=== PATIENT | female | born 1930 | race Caucasian/White ===

== ENCOUNTER 2017-02-10 18:09 | Inpatient (IN) ==
[2017-02-10 19:16] LABS: Basophils # 0.1 K/mcL (0.0-0.2); Basophils % 1.3 %; Eosinophils # 0.2 K/mcL (0.0-0.6); Eosinophils % 2.5 %; Hematocrit 39.5 % (35.3-44.9); Immature Granulocytes % 0.1 % (0-4); Lymphocytes # 2.7 K/mcL (0.6-4.6); Lymphocytes % 35.5 %; Mean Corpuscular HGB Conc 32.9 g/dL (31.6-35.5); Mean Corpuscular Hemoglobin 30.6 pg (28.0-33.3); Mean Corpuscular Volume 92.9 fL (83.0-100.0); Mean Platelet Volume 10.8 fL (9.4-12.4); Monocytes # 0.6 K/mcL (0.0-1.3); Monocytes % 8.4 %; Neutrophils # 3.9 K/mcL (1.6-8.9); Platelet Count 254 K/mcL (140-400); Red Blood Count 4.25 M/mcL (3.82-4.97); Segmented Neutrophils % 52.2 %
--- NOTE | 2017-02-10 19:24 | Emergency Department Note ---
Disposition Clinical Impression: Atrial fibrillation with RVR, Supratherapeutic INR Disposition: Admitted As Inpatient Condition: Fair Referrals: Renee Watkins MD [Primary Care Provider] - Forms: ED Satisfaction Letter Time of Disposition: 20:41 Recheck wound or abnormal lab - General Chief Complaint: ED Recheck/Abnormal Lab/Rx Stated Complaint: High INR Time Seen by Provider: 02/10/17 18:26 Source: patient, family Limitations: no limitations Nursing Notes Reviewed: Yes Vital Signs Reviewed: Yes - History of Present Illness HPI Narrative: Patient is an 87-year-old female who presents to [facility] ED with a chief complaint of elevated INR, atrial fibrillation. Patient was seen by her primary care physician earlier today who was concerned for this. Patient denies any nausea, vomiting, fever or chills. No chest pain or difficulty breathing. States she just does not get more tired than usual at home. This does not seem to bother her too much except for that she needs to rest more often than usual. No signs of bleeding. Denies any black or tarry stools. No lightheadedness or dizziness. Pt Subjective Complaint: abnormal lab(s) Symptoms Since Prior Visit: no new symptoms Context: called for abnormal lab result Associated symptoms: none - Related Data Home Medications Medication Instructions Recorded Confirmed Carvedilol 3.125 mg PO BID 02/10/17 02/10/17 Cefdinir [Omnicef] 300 mg PO BID 02/10/17 02/10/17 Dofetilide [Tikosyn] 0.25 mg PO BID 02/10/17 02/10/17 EPINEPHrine [Epipen] 0.3 mg IM ONCE PRN 02/10/17 02/10/17 Lisinopril [Zestril] 7.5 mg PO DAILY 02/10/17 02/10/17 Lutein/Zeaxanthin [Ocuvite Lutein 1 each PO DAILY 02/10/17 02/10/17 25-5 mg Softgel] Multivitamin [Multi-Day Vitamins] 1 each PO DAILY 02/10/17 02/10/17 Warfarin Sodium [Coumadin] 6 mg PO SUTUTH 02/10/17 02/10/17 Warfarin [Coumadin] 5 mg PO MOWEFRSA 02/10/17 02/10/17 Allergies Allergy/AdvReac Type Severity Reaction Status Date / Time No Known Allergies Allergy Verified 02/10/17 18:13 All systems ED: reviewed and negative except as stated. Past Medical History - Past Medical History Attestation: Yes The following information was validated with the patient. Source: patient Medical history: Reports: atrial fibrillation Psychiatric history: Reports: no psych history - Social History Smoking Status: Never smoker Smokeless Tobacco Status: No Alcohol use: Reports: none Drug use: Reports: none Physical Exam - General Limitations: no limitations General appearance: alert, in no apparent distress - Head Head exam: atraumatic, normocephalic, normal inspection - Eye Eye exam: Present: normal appearance, PERRL, EOMI - ENT ENT exam: normal exam, normal oropharynx, mucous membranes moist - Neck Neck exam: Present: normal inspection, full ROM, trachea midline - Chest Chest inspection: Present: normal inspection, symmetric chest wall rise - Respiratory Respiratory exam: Present: normal lung sounds bilaterally - Cardiovascular Cardiovascular exam: Present: tachycardia, irregular rhythm - Abdominal Exam Abdominal exam: Present: soft, Non-Tender. Absent: tenderness, distention, guarding, rebound, rigidity - Extremities Exam Extremities exam: Present: normal inspection, full ROM. Absent: tenderness, pedal edema - Back Exam Back exam: Present: normal inspection, full ROM. Absent: tenderness - Neurological Exam Neurological exam: Present: alert, oriented X3 - Psychiatric Psychiatric exam: Present: normal affect, normal mood - Skin Skin exam: Present: warm, dry, intact, normal color Course Course Narrative: Patient seen and examined. Atrial fibrillation with RVR. Chest x-ray and cardiopulmonary workup started. Patient's INR is high but patient does not have any obvious signs of bleeding. Her Coumadin will need to be held and her INR levels rechecked. - Reevaluation(s) Reevaluation #1: EKG does show A. fib with RVR. We will start patient on a Cardizem drip. We will admit to hospital. I spoke with hospitalist Dr. Palomares who has accepted patient for admission. Time: 20:32 Vital Signs Temperature 98.1 F 02/10/17 18:10 Pulse Rate 101 02/10/17 18:10 Respiratory Rate 18 02/10/17 18:10 Blood Pressure 150/118 02/10/17 18:10 O2 Sat by Pulse Oximetry 99 02/10/17 18:10 Temperature 98.1 F 02/10/17 18:10 Pulse Rate 101 02/10/17 18:10 Respiratory Rate 18 02/10/17 18:10 Blood Pressure 150/118 02/10/17 18:10 O2 Sat by Pulse Oximetry 99 02/10/17 18:10 Oxygen Delivery Oxygen Delivery Room Air Recheck wound or abnormal lab - MDM Narrative Medical decision making narrative: I examined this patient and my medical decision-making was reviewed with the CELL OPERATOR/PA/Advanced Practice Nurse/Resident Physician. I agree with the documented findings, disposition and treatment plan as described except to the extent set forth below. Evaluated this patient with Dr. Hurst and I agree with her evaluation and management plan, I supervised the care of the patient notes today. Patient comes in today with an elevated INR of 7.5 but no bleeding. She has a history of A. fib with RVR and she has felt a little bit weak denies any chest pain. Here her heart rate greater than 110. Check an EKG and she has A. fib with RVR here. So we will do further assessment and she may need admission. Laboratory work chest x-ray ordered an EKG. 1930 hrs.: Patient had an EKG performed shows a atrial fibrillation, ventricular rate is 1:15, QRS is 146, QTC is 434, left axis deviation with left bundle-branch block, compared this EKG she had in 2013 and showed the same except for change and rate no signs of acute ischemia. 2000 hrs.: Started on Cardizem for her rapid ventricular response. We will admit her. Critical care time exclusive A separately billable procedures 35 minutes. Chest X-Ray 02/10/17 19:36 IMPRESSION: 1. Small bilateral pleural effusions and chronic bilateral interstitial opacities. 2. Cardiomegaly. D/ / Nathan Quiñones MD / Nathan Quiñones MD Interpreting Provider: Nathan Quiñones MD - Medical Records Medical records reviewed: Yes I reviewed the patient's medical records. - Lab Data Lab results reviewed: Yes I reviewed the patient's lab results. Result diagrams: 02/10/17 18:35 02/10/17 18:35 Lab Results 02/10/17 02/10/17 02/10/17 Range/Units 18:35 18:35 18:35 WBC 7.5 (4.3-11.1) K/mcL RBC 4.25 (3.82-4.97) M/mcL Hgb 13.0 (11.5-15.4) g/dL Hct 39.5 (35.3-44.9) % MCV 92.9 (83.0-100.0) fL MCH 30.6 (28.0-33.3) pg MCHC 32.9 (31.6-35.5) g/dL RDW 14.0 (11.5-14.5) % Plt Count 254 (140-400) K/mcL MPV 10.8 (9.4-12.4) fL Immature Gran % 0.1 (0-4) % Seg Neutrophils % 52.2 % Lymphocytes % 35.5 % Monocytes % 8.4 % Eosinophils % 2.5 % Basophils % 1.3 % Neutrophils # 3.9 (1.6-8.9) K/mcL Lymphocytes # 2.7 (0.6-4.6) K/mcL Monocytes # 0.6 (0.0-1.3) K/mcL Eosinophils # 0.2 (0.0-0.6) K/mcL Basophils # 0.1 (0.0-0.2) K/mcL Sodium 138 (136-145) mEq/L Potassium 4.3 (3.5-4.5) mEq/L Chloride 105 (98-109) mEq/L Carbon Dioxide 21 (19-29) mEq/L BUN 23 H (7-20) mg/dL Creatinine 1.61 H (0.57-1.11) mg/dL Est GFR ( Amer) 37 L (> 60) Est GFR (Non-Af Amer) 30 L (> 60) BUN/Creatinine Ratio 14 (6-26) Glucose 97 (70-99) mg/dL Calculated Osmolality 290 (280-300) Calcium 10.4 (8.6-10.8) mg/dL Troponin I 0.02 (0-0.03) ng/mL B-Natriuretic Peptide (0-100) pg/mL 02/10/17 Range/Units 18:35 WBC (4.3-11.1) K/mcL RBC (3.82-4.97) M/mcL Hgb (11.5-15.4) g/dL Hct (35.3-44.9) % MCV (83.0-100.0) fL MCH (28.0-33.3) pg MCHC (31.6-35.5) g/dL RDW (11.5-14.5) % Plt Count (140-400) K/mcL MPV (9.4-12.4) fL Immature Gran % (0-4) % Seg Neutrophils % % Lymphocytes % % Monocytes % % Eosinophils % % Basophils % % Neutrophils # (1.6-8.9) K/mcL Lymphocytes # (0.6-4.6) K/mcL Monocytes # (0.0-1.3) K/mcL Eosinophils # (0.0-0.6) K/mcL Basophils # (0.0-0.2) K/mcL Sodium (136-145) mEq/L Potassium (3.5-4.5) mEq/L Chloride (98-109) mEq/L Carbon Dioxide (19-29) mEq/L BUN (7-20) mg/dL Creatinine (0.57-1.11) mg/dL Est GFR ( Amer) (> 60) Est GFR (Non-Af Amer) (> 60) BUN/Creatinine Ratio (6-26) Glucose (70-99) mg/dL Calculated Osmolality (280-300) Calcium (8.6-10.8) mg/dL Troponin I (0-0.03) ng/mL B-Natriuretic Peptide 477 H (0-100) pg/mL - Radiology Data Radiology results reviewed: Yes I reviewed the patient's radiology results. Chest X-Ray 02/10/17 19:36
[2017-02-10 19:33] LABS: Calcium 10.4 mg/dL (8.6-10.8); Potassium 4.3 mEq/L (3.5-4.5)
--- NOTE | 2017-02-10 21:23 | Internal Med History&Physical ---
Date of Encounter: 02/10/17 Time of Encounter: 21:18 Assessment and Plan (1) UTI (urinary tract infection) Current visit: Yes Status: Acute per history will check ua and cultures and resume her OP omnicef Qualifiers: Urinary tract infection type: acute cystitis Hematuria presence: without hematuria Qualified Code(s): N30.00 - Acute cystitis without hematuria (2) CHF (congestive heart failure) Current visit: Yes Status: Acute congestive heart failure likely due to atrial fib with RVR will check echo in am and gentle diuresis Qualifiers: Congestive heart failure type: unspecified congestive heart failure type Congestive heart failure chronicity: unspecified congestive heart failure chronicity Qualified Code(s): I50.9 - Heart failure, unspecified (3) Atrial fibrillation with RVR Current visit: Yes Status: Acute started on cardizem drip rate now in 80s will continue cardzem drip add lopressor and cardiology consult in am (4) Supratherapeutic INR Current visit: Yes Status: Acute hold coumadin for now (5) Renal failure Current visit: Yes Status: Acute dont have baseline will recheck ain am Internal Medicine - H&P: HPI Chief complaint: atrial fib Admitted From: Emergency Dept Plans for Post Hospital Care: Home History of present illness: Ms. Delgadillo is a 87 year old female Patient with history of atrial fibrillation , recurrent uti cultures grows E coli, in past , htn patient was seen by primary physician today and noted in RVR atrial fib and also inr was 7.5 patient was then sent to ER for further evaluation Has symptoms of sob with exertion and generalized fatique had prior cardioversion for atrial fib twice in past. sees [facility] also concern about symptoms of uti . had OP prescription not filled yet bnp was 477 on exam has bilat rales and grade 2/6 systolic murmur Past Med Surg Social Fam HX - Past Medical History Medical history: atrial fibrillation, hypertension Psychiatric history: no psych history - Social History Smoking Status: Never smoker Smokeless Tobacco Status: No Alcohol use: none Drug use: none Internal Medicine - H&P: Meds Carvedilol 3.125 mg PO BID 02/10/17 [History] Cefdinir [Omnicef] 300 mg PO BID 02/10/17 [History] Dofetilide [Tikosyn] 0.25 mg PO BID 02/10/17 [History] EPINEPHrine [Epipen] 0.3 mg IM ONCE PRN 02/10/17 [History] Lisinopril [Zestril] 7.5 mg PO DAILY 02/10/17 [History] Lutein/Zeaxanthin [Ocuvite Lutein 25-5 mg Softgel] 1 each PO DAILY 02/10/17 [ History] Multivitamin [Multi-Day Vitamins] 1 each PO DAILY 02/10/17 [History] Warfarin Sodium [Coumadin] 6 mg PO SUTUTH 02/10/17 [History] Warfarin [Coumadin] 5 mg PO MOWEFRSA 02/10/17 [History] Allergies No Known Allergies Allergy (Verified 02/10/17 18:13) All Systems PM: A 10-system review of systems was performed and is negative for pertinent findings except as documented above in the HPI. - Constitutional Constitutional: fatigue, lethargy - EENT Eyes: no change in vision, no discharge, no pain, no photophobia Ears: no ear discharge, no ear pain, no tinnitus Nose, mouth and throat: no dysphagia, no nasal discharge, no neck pain, no sore throat - Cardiovascular Cardiovascular ROS IM: diaphoresis, dyspnea, dyspnea on exertion, irregular heart rhythm, lightheadedness, palpitations - Respiratory Respiratory: dyspnea, dyspnea on exertion - Gastrointestinal Gastrointestinal: no abdominal pain, no diarrhea, no hematemesis, no hematochezia, no melena, no nausea, no vomiting - Genitourinary Genitourinary: no change in urinary stream, no dysuria, no flank pain, no hematuria - Musculoskeletal Musculoskeletal ROS IM: no numbness, no tingling - Constitutional Vitals: Temp Pulse Resp BP Pulse Ox 98.1 F 122 14 120/101 95 02/10/17 18:10 02/10/17 20:31 02/10/17 21:11 02/10/17 21:11 02/10/17 20:31 General appearance: Present: A&O X 3 - Head Head exam: Present: atraumatic, normocephalic - Eye Eye exam: Present: PERRL, conjuntiva pink, sclera anicteric Pupils: Present: PERRL - Neck Neck exam general surgery: Present: supple, trachea midline. Absent: lymphadenopathy - Respiratory Respiratory exam: Present: rales - Cardiovascular Cardiovascular exam: Present: irregular rhythm, systolic murmur - GI/Abdominal GI/Abdominal exam: Present: normal bowel sounds, soft, no peritoneal signs. Absent: distended, tenderness - Extremities Exam Extremities exam: Present: warm, radial pulses palpable and symetrical. Absent : calf tenderness, cyanotic, pedal edema - Neurological Exam Neurological exam: Present: CN II-XII intact, oriented X3, no focal deficits. Absent: pronater drift, facial droop, speech deficit Internal Med - H&P Results - Labs CBC & Chem 7: 02/10/17 18:35 02/10/17 18:35
[2017-02-10] MEDS ORDERED: Naloxone 0.4 MG/ML INJ IVP PRN (21:30)
[2017-02-10] MEDS ORDERED: *HR* Morphine 2 MG/ML SYRINGE IVP PRN (21:30)
[2017-02-10] MEDS ORDERED: 0.9 % Sodium Chloride 1,000 ML ONE (22:16)
[2017-02-10 23:05] LABS: Bilirubin,Urine Negative (Negative); Blood,Urine Moderate (Negative); Clarity,Urine Turbid (Clear); Color,Urine Yellow (Yellow); Glucose,Urine (UA) Normal (Normal); Ketones,Urine Negative (Negative); Leukocyte Esterase,Urine Large (Negative); Nitrite,Urine Positive (Negative); PH,Urine 6.5 pH Units (5.0-8.0); Protein,Urine Trace mg/dL (Neg-Trace); Urobilinogen,Urine Normal (Normal)
[2017-02-10 23:13] LABS: Bacteria,Urine Many per hpf (None-Few); Hyaline Casts,Urine None Seen per lpf (None-Few); Squamous Epithelial Cell,Urine Many per lpf (None-Few); WBC,Urine TNTC per hpf (0-3)
[2017-02-11 00:34] LABS: Basophils # 0.1 K/mcL (0.0-0.2); Basophils % 0.7 %; Eosinophils # 0.1 K/mcL (0.0-0.6); Eosinophils % 1.3 %; Hemoglobin 11.7 g/dL (11.5-15.4); Immature Granulocytes % 0.3 % (0-4); Lymphocytes # 2.7 K/mcL (0.6-4.6); Lymphocytes % 25.8 %; Mean Corpuscular HGB Conc 32.5 g/dL (31.6-35.5); Mean Corpuscular Hemoglobin 29.7 pg (28.0-33.3); Mean Corpuscular Volume 91.4 fL (83.0-100.0); Mean Platelet Volume 10.1 fL (9.4-12.4); Monocytes # 0.7 K/mcL (0.0-1.3); Monocytes % 6.3 %; Neutrophils # 6.9 K/mcL (1.6-8.9); Platelet Count 215 K/mcL (140-400); Red Blood Count 3.94 M/mcL (3.82-4.97); Red Cell Distribution Width 13.7 % (11.5-14.5); Segmented Neutrophils % 65.6 %
[2017-02-11 00:49] LABS: Albumin 3.2 g/dL (3.5-5.0); Albumin/Globulin Ratio 0.9 (1.1-2.2); Bilirubin,Total 0.6 mg/dL (0.2-1.2); Calcium 9.9 mg/dL (8.6-10.8); Chol/HDL Ratio 5.4 (0-4.9); Globulin 3.7 g/dL (2.4-3.5); Magnesium 1.9 mg/dL (1.6-2.6); Potassium 4.1 mEq/L (3.5-4.5); Total Protein 6.9 g/dL (6.0-8.3)
[2017-02-11 06:36] LABS: INR 7.3; Prothrombin Time 83.4 Seconds (9.4-12.1)
[2017-02-11] MEDS ORDERED: Furosemide 20 MG/2 ML VIAL IVP SCH (08:00)
[2017-02-11] MEDS ORDERED: OCUVITE LUTEIN PO SCH (09:00)
[2017-02-11] MEDS ORDERED: Cefdinir 300 MG CAPSULE PO SCH (09:00)
[2017-02-11] MEDS ORDERED: Multivit/Ca/Min/Fe/FA 1 TAB TABLET PO SCH (09:00)
--- NOTE | 2017-02-11 09:58 | Cardiology Consult Note ---
Date of Encounter: 02/11/17 Time of Encounter: 08:00 Assessment and Plan (1) Atrial fibrillation with RVR Current Visit: Yes Status: Acute Known chronic afib. Previously rate controlled on carvedilol. Now rate controlled with HR in the 80's. Started on metoprolol tartrate. Recommend changing to metoprolol succinate with history of non-ischemic cardiomyopathy, EF 35-40% on last TTE here. Follows with Dr. Guillen in [place]. Avoid oral cardizem unless EF improved. TTE pending. Check TSH. (2) Supratherapeutic INR Current Visit: Yes Status: Acute Hold coumadin until INR 3.0 or less. No signs of bleeding. (3) CHF (congestive heart failure) Current Visit: Yes Status: Acute Mild CHF, likely exacerbated by atrial fibrillation with RVR. TTE - EF 35-40%, mild mitral stenosis, abnormal septal motion consistent with LBBB. Mild diastolic dysfunction. Moderate tricuspid regurgitation. Severe pulmonary hypertension. repeat TTE pending. Agree with gental IV diuresis. Creatinine improved. Change to oral maintenance dose tomorrow. Near euvolemia. CHF education reviewed. Low sodium diet and daily weights. Continue isabel inhibitor and bb. Qualifiers: Congestive heart failure type: unspecified congestive heart failure type Congestive heart failure chronicity: unspecified congestive heart failure chronicity Qualified Code(s): I50.9 - Heart failure, unspecified Discussion w patient/family: The assessment and plan as outlined above was discussed with the patient and/or family members who expressed understanding and agreement. All questions were answered. Thank you for involving us in the care of your patient. Please call with any questions. History of Present Illness Consult date: 02/11/17 Requesting physician: Asya Burk Consult reason: Atrial fibrillation with RVR Chief complaint: SOB History of present illness: Ms. Delgadillo is a 87 year old female who presented to the ER when her INR was found to be elevated at 7.3. She was found to be in atrial fibrillation with RVR and have mild CHF. She is also being treated for UTI. She admits to dyspnea on exertion and palpitations. Admits to occasional chest heaviness with exertion and fatigue. Past medical history significant for CAD s/p PCI, chronic atrial fibrillation on coumadin, LBBB, and hypertension. On my exam she denies chest pain. HR improved on cardizem gtt and was discontinued by nursing staff last night. Previous cardiac testing: [facility] 05/30/13- EF 25%, non-ischemic cardiomyoapthy. S/p YAIR/ PTCA to her 1st diagonal artery. Mild non-obstructive disease otherwise. TTE - EF 35-40%, mild mitral stenosis, abnormal septal motion consistent with LBBB. Mild diastolic dysfunction. Moderate tricuspid regurgitation. Severe pulmonary hypertension. Past Med Surg Social Fam HX - Past Medical History Medical history: atrial fibrillation, cardiomyopathy, coronary artery disease, hypertension Psychiatric history: no psych history - Past Surgical History Surgical History: hysterectomy - Social History Smoking Status: Never smoker Smokeless Tobacco Status: No Alcohol use: none Drug use: none Medications and Allergies Carvedilol 3.125 mg PO BID 02/10/17 [History] Cefdinir [Omnicef] 300 mg PO BID 02/10/17 [History] Dofetilide [Tikosyn] 0.25 mg PO BID 02/10/17 [History] EPINEPHrine [Epipen] 0.3 mg IM ONCE PRN 02/10/17 [History] Lisinopril [Zestril] 7.5 mg PO DAILY 02/10/17 [History] Lutein/Zeaxanthin [Ocuvite Lutein 25-5 mg Softgel] 1 each PO DAILY 02/10/17 [ History] Multivitamin [Multi-Day Vitamins] 1 each PO DAILY 02/10/17 [History] Warfarin Sodium [Coumadin] 6 mg PO SUTUTH 02/10/17 [History] Warfarin [Coumadin] 5 mg PO MOWEFRSA 02/10/17 [History] Allergies No Known Allergies Allergy (Verified 02/10/17 18:13) All Systems Review: A 10-system review of systems was performed and is negative for pertinent findings except as documented above in the HPI. Physical Examination Vital Signs, Last 4 Hours Temp Pulse Resp BP Pulse Ox 02/11/17 07:57 98.0 F 89 16 128/77 95 General: Conversant, No Apparent Distress HEENT: Atraumatic, Normocephaly, Mucus Membranes Moist Neck: No JVD, Normal carotid pulses Cardiac: Other (Irregularly irregular) Lungs: Normal Breath Sounds, No Wheeze, Rales, Rhonchi Neuro: Alert and responsive, No focal deficits noted Abdomen: Soft, Non-Tender Skin: No rashes noted on visualized skin Musculoskeletal: No Chest Wall Tenderness Extremities: No Clubbing, No Cyanosis, No Edema, Normal Pulses Results 02/11/17 00:27 02/11/17 00:27 Lab Results 02/11/17 02/11/17 05:53 05:53 INR 7.3 H* Troponin I 0.03 - Imaging and Cardiology Echo: report reviewed Cardiac cath: report reviewed - EKG Interpretation EKG results cardiology: personally reviewed (atrial fibrillation with RVR, HR 115 bpm. LBBB) Consult Discharge Plan - Plan Referrals: Renee Watkins MD [Primary Care Provider] - 02/18/17 10:20 am ()
--- NOTE | 2017-02-11 11:46 | ECHO - Doppler Report ---
Echocardiogram Name: Silvana Delgadillo Date of Study: 02/11/2017 Date: 1930 Ht: 65.0 in Medical Record#: [id number] Age: 87 Wt: 121.0 lb Gender: Female BSA: 1.6 Order #: [id number] Location: [facility] Room #: 2A13 Reading Physician: Lore Ziegler DO Water Resource Consultant: Bill Daily RN Ordering Physician: Jj Burk MD Primary Physician: Renee Watkins MD Indications: Congestive heart failure, Arrhythmia Impressions: LVEF 35%. Moderate global and regional LV systolic dysfunction. Indeterminate left venticular diastoic function Normal right ventricular size and function. Mitral valve is mildly calcified and thickened with a rheumatic appearance. There is moderate mitral stenosis by gradient, 5 mmHg at 81 bpm. Probably severe mitral regurgitation. Mild eccentric aortic regurgitation. Moderate to severe tricuspid regurgitation by color flow. TR gradient 42 mmHg. Mild pulmonic regurgitation. Mild pulmonary hypertension. RVSP 45 mmHg. IVC is not dilated. Left Ventricular Wall Motion: Rest Echo Findings The apex, apical inferior, mid inferior, basal inferior, apical anterior, mid anterior, basal anterior, apical septal, mid inferior septal, basal inferior septal, apical lateral, mid anterior lateral, basal anterior lateral, mid anterior septal, mid inferior lateral, basal anterior septal and basal inferior lateral tyson were hypokinetic. Findings: Study Quality * Technically adequate exam. ECG Findings * Consider atrial fibrillation. Mitral Valve * Moderate mitral stenosis. * Mildly calcified and thickened mitral valve leaflets with doming and restricted leaflet excursion. * Probably severe mitral regurgitation. Aorta * Normally sized aortic root. Aortic Valve * Trileaflet aortic valve. * No aortic stenosis. * Mild eccentric aortic regurgitation. Tricuspid Valve * Normal tricuspid valve structure. * Moderate-severe tricuspid regurgitation. * Estimated RA pressure is 3 mmHg. * Estimated RVSP is 45 mmHg. * Mild pulmonary hypertension. Pulmonic Valve * Pulmonic valve is not well visualized. * No pulmonic stenosis. * Mild pulmonic regurgitation. Pulmonary Artery * Pulmonary artery not well visualized. Right Ventricle * Normal right ventricular structure and function. Left Atrium * Severely dilated left atrium. Right Atrium * Mildly dilated right atrium. Left Ventricle * Indeterminate diastolic function. * LVEF 35%. * Normal LV size and wall thickness. Interatrial Septum * No evidence of PFO by color Doppler. Pericardium * There is no pericardial effusion present. IVC * Normal IVC dimensions and inspiratory collapse. History Hypertension Hypercholesteremia Congestive Heart Failure 09/04/2013 a Previous Echo was performed. Measurements: BP: 128/ 77 2D Normal Values RVIDd: 2.70 cm <2.7 cm IVSd: 1.20 cm 0.6 - 1.0 cm LVIDd: 4.50 cm 3.7 - 5.6 cm LVPWd: 1.20 cm 0.6 - 1.1 cm LVIDs: 3.80 cm 1.5 - 3.6 cm LA: 4.70 cm 2.0 - 4.0cm %FS: 15.60 cm >25 % LVOT Diam: 2.00 cm LA volume: 92 Mitral Valve Peak Velocity 1.78 m/sec Mean Velocity:1.03 m/sec Peak Grad:13.00 mmHg Mean Grad:5.00 mmHg Peak E:1.56 m/sec Peak E' Lat Hoang:6.92 cm/s Peak E' Med Hoang:5.26 cm/s E/E' Lat Ratio:22.5 E/E' Med Ratio:29.7 Aortic Valve AI pressure Half-time: 539.00 msec Tricuspid Valve TV Regurg Peak Grad: 42.00mmHg TV Regurg Peak Hoang: 3.23m/sec Updated by Lore Ziegler on 02/11/2017 11:37:54 AM electronically signed on 02/11/2017 11:40:21 AM with status of Final Wall Motion Owens: 1=Normal, 2=Hypokinesis, 3=Akinesis, 4=Dyskinesis, 5=Aneurysmal, 6=Hyperkinetic, X=Not Visualized (Blank)=Missing
[2017-02-11 12:11] VITALS: BP 119/72
[2017-02-11] MEDS ORDERED: *HR* OxyCODONE Immed Rel 5 MG TABLET PO PRN (12:35)
--- NOTE | 2017-02-11 15:09 | Discharge Summary ---
Date of Encounter: 02/11/17 Time of Encounter: 09:00 - Discharge Diagnosis (1) Supratherapeutic INR Priority: Primary Status: Acute (2) Atrial fibrillation with RVR Priority: Primary Status: Acute (3) Essential hypertension Priority: Secondary Status: Chronic (4) CKD (chronic kidney disease) Priority: Secondary Status: Chronic Qualifiers: Chronic kidney disease stage: stage 3 (moderate) Qualified Code(s): N18.3 - Chronic kidney disease, stage 3 (moderate) (5) UTI (urinary tract infection) Priority: Primary Status: Acute Qualifiers: Urinary tract infection type: acute cystitis Hematuria presence: without hematuria Qualified Code(s): N30.00 - Acute cystitis without hematuria (6) CHF (congestive heart failure) Priority: Secondary Status: Chronic Qualifiers: Congestive heart failure type: combined Congestive heart failure chronicity : chronic Qualified Code(s): I50.42 - Chronic combined systolic (congestive) and diastolic (congestive) heart failure - Discharge Medications Prescriptions: Furosemide [Lasix] 20 mg PO DAILY #30 tablet Metoprolol XL (24 HR) Succ [Toprol Xl] 50 mg PO QPM #30 tab.er.24h Home Medications: Cefdinir [Omnicef] 300 mg PO BID 02/10/17 [History] Dofetilide [Tikosyn] 0.25 mg PO BID 02/10/17 [History] EPINEPHrine [Epipen] 0.3 mg IM ONCE PRN 02/10/17 [History] Lisinopril [Zestril] 7.5 mg PO DAILY 02/10/17 [History] Lutein/Zeaxanthin [Ocuvite Lutein 25-5 mg Softgel] 1 each PO DAILY 02/10/17 [ History] Multivitamin [Multi-Day Vitamins] 1 each PO DAILY 02/10/17 [History] Furosemide [Lasix] 20 mg PO DAILY #30 tablet 02/11/17 [Rx] Metoprolol XL (24 HR) Succ [Toprol Xl] 50 mg PO QPM #30 tab.er.24h 02/11/17 [Rx] Warfarin Sodium [Coumadin] 6 mg PO SUTUTH #0 02/11/17 [Rx] Warfarin [Coumadin] 5 mg PO MOWEFRSA #0 02/11/17 [Rx] Allergies/Adverse Reactions: Allergies No Known Allergies Allergy (Verified 02/10/17 18:13) Date of admission: 02/11/17 03:19 Primary care physician: Renee Watkins MD Discharging clinician: Neeru Christianson Anticipated date of discharge: 02/11/17 - Patient Status Disposition: Home, Self-Care Condition: Good Functional capacity at discharge: independent ambulation Overall status at discharge: patient is progressing back to baseline - Discharge Instructions Instructions: Heart Failure (DC), Atrial Fibrillation (DC) Follow Up With: Renee Watkins MD [Primary Care Provider] - 02/18/17 10:20 am () Additional Instructions: F/up with primary Cardiology in [place] in 1-2 weeks F/up with PCP for INR check in 4-5 days - Diet and Activity Activity: resume usual activities as tolerated Diet: low fat, low cholesterol, low salt diet Hospital course: Ms. Delgadillo is a 87 year old female with known h/o- a.fib and cardiomyopathy was admitted with a.fib with RVR. Patient remained asymptomatic and had been referred for admission by PCP office. SHe was briefly started on IV Cardizem drip with appropriate HR control and then switched to PO Metoprolol XL. Echocardiogram was done which showed decreased EF 35%, indeterminate diastolic function, moderate MS and severe MR, moderate-severe TR, mild pulmonary HTN. These are known findings in the patient. She also received gentle diuresis for mild CHF due to tachycardia. INR was noted to be supratherapeutic with no e/o- bleeding complications and Coumadin is currently being held. She was also recently diagnosed with UTI and started on antibiotics, which will have to continued to compete the course. Cardiology was consulted, agrees with current management and patient is medically stable for discharge with outpatient f/up with [facility] [place]. - Time Spent with Patient Total time spent providing and/or coordinating discharge services: Greater than 30 minutes (50 min) - Constitutional Vitals: Temp Pulse Resp BP Pulse Ox 97.5 F L 97 16 119/72 97 02/11/17 12:09 02/11/17 12:09 02/11/17 12:09 02/11/17 12:09 02/11/17 12:09 General appearance: Present: A&O X 3, answers questions appropriately - Cardiovascular Cardiovascular exam: Present: irregular rhythm, +S1, +S2. Absent: diastolic murmur, gallop, rubs, systolic murmur
--- NOTE | 2017-02-11 16:52 | Electrocardiograph Report ---
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
[2017-02-11] MEDS ORDERED: Metoprolol XL (24 HR) Succ 50 MG TAB.ER.24H PO SCH (18:00)
[2017-02-12] MEDS ORDERED: Cefdinir 300 MG CAPSULE PO SCH (09:00)
== END 2017-02-11 15:39 | disposition home or self-care (01) | DRG 309 ==
LOC: 2ANU 18:09 → EMEROO 18:09 → 2ANU 21:31 → SUATTDRO 02-11 03:19
PROVIDERS: ADMIT Internal Medicine; ATTEND Internal Medicine

== ENCOUNTER 2017-04-27 09:43 | Inpatient (IN) ==
--- NOTE | 2017-04-27 09:55 | Emergency Department Note ---
Disposition Clinical Impression: Elevated INR, [id number] kidney injury Sepsis Qualifiers: Sepsis type: sepsis due to unspecified organism Qualified Code(s): A41.9 - Sepsis, unspecified organism Pneumonia Qualifiers: Pneumonia type: due to unspecified organism Laterality: unspecified laterality Lung location: unspecified part of lung Qualified Code(s): J18.9 - Pneumonia, unspecified organism Disposition: Admitted As Inpatient Condition: Undetermined Referrals: NO,PCP [Non-Partnered Physician] - Time of Disposition: 12:12 General Adult HPI - General Chief complaint: ED Weakness Stated complaint: weakness Time Seen by Provider: 04/27/17 09:50 Source: patient, EMS Mode of arrival: wheelchair Limitations: no limitations Nursing Notes Reviewed: Yes Vital Signs Reviewed: Yes - History of Present Illness HPI Narrative: 87-year-old female with history of warfarin use secondary to atrial fibrillation , recent diagnosis of possible early dementia, arrives [facility] emergency department with the patient's granddaughter concerned about weakness and mild confusion. The patient's daughter states that she went to the patient's house at roughly 88 and this morning to pick the patient up in the mother was unaware that she was coming. This apparently has been ongoing the past few weeks. The patient's granddaughter states that the patient was complaining of headache behind her eyes as well as difficulty breathing. The patient denies any loss of consciousness or fall. The daughter states that the patient's INR was elevated at 6.91 day ago and she was going to pick her up this morning to have a recheck of the patient's INR. The patient denies any other complaints other than feeling slightly short of breath and headache. The patient is alert and oriented to person, place, time. The patient has no obvious deficits on examination and history. Onset (ago): unknown Location: head Pain Severity: mild Pain Scale: 1 Improves with: nothing Worsens with: nothing Associated symptoms: Reports: confusion Treatments Prior to Arrival: none - Related Data Home Medications Medication Instructions Recorded Confirmed Cefdinir [Omnicef] 300 mg PO BID 02/10/17 02/10/17 Dofetilide [Tikosyn] 0.25 mg PO BID 02/10/17 02/10/17 EPINEPHrine [Epipen] 0.3 mg IM ONCE PRN 02/10/17 02/10/17 Lisinopril [Zestril] 7.5 mg PO DAILY 02/10/17 02/10/17 Lutein/Zeaxanthin [Ocuvite Lutein 1 each PO DAILY 02/10/17 02/10/17 25-5 mg Softgel] Multivitamin [Multi-Day Vitamins] 1 each PO DAILY 02/10/17 02/10/17 Previous Rx's Medication Instructions Recorded Furosemide [Lasix] 20 mg PO DAILY #30 tablet 02/11/17 Metoprolol XL (24 HR) Succ [Toprol 50 mg PO QPM #30 tab.er.24h 02/11/17 Xl] Warfarin Sodium [Coumadin] 6 mg PO SUTUTH #0 02/11/17 Warfarin [Coumadin] 5 mg PO MOWEFRSA #0 02/11/17 Allergies Allergy/AdvReac Type Severity Reaction Status Date / Time No Known Allergies Allergy Verified 04/27/17 09:57 All systems ED: reviewed and negative except as stated. Constitutional: Reports: weakness. Denies: fever, chills, weight change Eyes: Denies: eye pain, eye discharge, vision change ENT ED: Denies: ear pain, throat pain, dental pain, hearing loss, epistaxis, congestion, dysphagia Cardiovascular: Denies: chest pain, palpitations, dyspnea on exertion, edema, syncope Respiratory: Reports: dyspnea. Denies: cough, wheezes, hemoptysis, stridor Gastrointestinal: Denies: abdominal pain, nausea, vomiting, diarrhea, constipation, hematemesis, melena, hematochezia Musculoskeletal: Denies: back pain, neck pain, arthralgia, myalgia Integumentary: Denies: rash, abrasion, lesions Neurological: Reports: headache, weakness. Denies: numbness, paresthesias, confusion, abnormal gait, vertigo Past Medical History - Past Medical History Attestation: Yes The following information was validated with the patient. Source: patient Medical history: Reports: atrial fibrillation, cardiomyopathy, coronary artery disease, hypertension Surgical history: Reports: hysterectomy Psychiatric history: Reports: no psych history - Social History Smoking Status: Never smoker Smokeless Tobacco Status: No Alcohol use: Reports: none Drug use: Reports: none Physical Exam - General Limitations: no limitations General appearance: alert, in no apparent distress - Head Head exam: atraumatic, normocephalic, normal inspection - Chest Chest inspection: Present: normal inspection, symmetric chest wall rise - Respiratory Respiratory exam: Present: normal lung sounds bilaterally - Cardiovascular Cardiovascular exam: Present: regular rate, irregular rhythm, normal heart sounds - Abdominal Exam Abdominal exam: Present: soft, Non-Tender. Absent: tenderness, distention, guarding, rebound, rigidity - Extremities Exam Extremities exam: Present: normal inspection, full ROM. Absent: tenderness, pedal edema - Back Exam Back exam: Present: normal inspection, full ROM. Absent: tenderness - Neurological Exam Neurological exam: Present: alert, oriented X3 - Skin Skin exam: Present: warm, dry, intact, normal color Course - Reevaluation(s) Reevaluation #1: Patient's blood cell count is elevated at 26. Patient's chest x-ray demonstrates infiltrate versus pulmonary edema. Initially the patient presented with weakness and shortness of breath sepsis was not on the differential, after the patient's leukocytosis and findings on chest x-ray would work the patient up for infectious etiology to include likely has had a blood culture. We will prophylactically treat the patient with IV Rocephin. In addition we will treat the patient with Lasix IV for pulmonary edema. The patient's INR is elevated at 8.9. There is no active signs of bleeding and the patient's hemoglobin is within normal limits. The patient also appears to have an acute on chronic kidney injury. We will admit the patient to the hospital for further workup. Time: 11:00 Reevaluation #2: Patient's lactic acid returned elevated. The patient was given another 500 mL bolus. I am concerned more about sepsis at this time versus congestive heart failure. We will go ahead and treat the patient has a sepsis protocol given the patient's lab work and findings. The patient is not tachycardic, not hypotensive. Although with the lactic acidosis we will consider septic shock as a diagnosis. We will admit the patient to the hospital at this time. The patient was administered 1 g of Rocephin with likely source being a pulmonary etiology. The patient is currently on Macrobid for a "UTI". Her urine did not appear as though it would be the etiology of the patient's sepsis. Patient and family agree to plan. Time: 12:03 Vital Signs Temperature 98.7 F 04/27/17 09:52 Pulse Rate 95 04/27/17 09:52 Respiratory Rate 16 04/27/17 09:52 Blood Pressure 110/58 04/27/17 09:52 O2 Sat by Pulse Oximetry 99 04/27/17 09:52 Temperature 98.7 F 04/27/17 09:52 Pulse Rate 81 04/27/17 11:54 Respiratory Rate 16 04/27/17 11:54 Blood Pressure 90/56 04/27/17 11:54 O2 Sat by Pulse Oximetry 98 04/27/17 11:54 Oxygen Delivery Oxygen Delivery Room Air Medical Decision Making - MDM Narrative Medical decision making narrative: Patient accepted by hospitalist who recommended adding azithromycin. We will perform this. Accepted by Dr. Miles. - Lab Data Lab results reviewed: Yes I reviewed the patient's lab results. Result diagrams: 04/27/17 10:35 04/27/17 10:35 Lab Results 04/27/17 04/27/17 04/27/17 Range/Units 10:02 10:35 10:35 WBC 26.2 H (4.3-11.1) K/mcL RBC 4.35 (3.82-4.97) M/mcL Hgb 13.2 (11.5-15.4) g/dL Hct 38.5 (35.3-44.9) % MCV 88.5 (83.0-100.0) fL MCH 30.3 (28.0-33.3) pg MCHC 34.3 (31.6-35.5) g/dL RDW 12.6 (11.5-14.5) % Plt Count 224 (140-400) K/mcL MPV 10.2 (9.4-12.4) fL Seg Neutrophils % 80.0 % Band Neutrophils % 16.0 H (0-4) % Lymphocytes % 4.0 % Neutrophils # 25.2 H (1.6-8.9) K/mcL Lymphocytes # 1.1 (0.6-4.6) K/mcL Platelet Estimate Normal (Normal) PT 99.6 H* (9.4-12.1) Seconds INR 8.6 H* APTT 53.5 H (26.0-36.0) Seconds Sodium (136-145) mEq/L Potassium (3.5-4.5) mEq/L Chloride (98-109) mEq/L Carbon Dioxide (19-29) mEq/L BUN (7-20) mg/dL Creatinine (0.57-1.11) mg/dL Est GFR ( Amer) (> 60) Est GFR (Non-Af Amer) (> 60) BUN/Creatinine Ratio (6-26) Glucose (70-99) mg/dL POC Glucose 112 H (58-89) Calculated Osmolality (280-300) Lactic Acid (0.5-2.2) mmol/L Calcium (8.6-10.8) mg/dL Troponin I (0-0.03) ng/mL Urine Color (Yellow) Urine Clarity (Clear) Urine pH (5.0-8.0) pH Units Ur Specific [place] (1.010-1.025) Urine Protein (Neg-Trace) mg/dL Urine Glucose (UA) (Normal) mg/dL Urine Ketones (Negative) mg/dL Urine Blood (Negative) Urine Nitrite (Negative) Urine Bilirubin (Negative) Urine Urobilinogen (Normal) mg/dL Ur Leukocyte Esterase (Negative) Urine Microscopic RBC (0-3) per hpf Urine Microscopic WBC (0-3) per hpf Ur Squamous Epith Cells (None-Few) per lpf Urine Bacteria (None-Few) per hpf Hyaline Casts (None-Few) per lpf Ur Culture Indicated? (NO) Specimen Rejected 04/27/17 04/27/17 04/27/17 Range/Units 10:35 10:35 10:58 WBC (4.3-11.1) K/mcL RBC (3.82-4.97) M/mcL Hgb (11.5-15.4) g/dL Hct (35.3-44.9) % MCV (83.0-100.0) fL MCH (28.0-33.3) pg MCHC (31.6-35.5) g/dL RDW (11.5-14.5) % Plt Count (140-400) K/mcL MPV (9.4-12.4) fL Seg Neutrophils % % Band Neutrophils % (0-4) % Lymphocytes % % Neutrophils # (1.6-8.9) K/mcL Lymphocytes # (0.6-4.6) K/mcL Platelet Estimate (Normal) PT (9.4-12.1) Seconds INR APTT (26.0-36.0) Seconds Sodium 136 (136-145) mEq/L Potassium 4.5 (3.5-4.5) mEq/L Chloride 101 (98-109) mEq/L Carbon Dioxide 26 (19-29) mEq/L BUN 37 H (7-20) mg/dL Creatinine 1.93 H (0.57-1.11) mg/dL Est GFR ( Amer) 30 L (> 60) Est GFR (Non-Af Amer) 24 L (> 60) BUN/Creatinine Ratio 19 (6-26) Glucose 112 H (70-99) mg/dL POC Glucose (58-89) Calculated Osmolality 291 (280-300) Lactic Acid (0.5-2.2) mmol/L Calcium 11.2 H (8.6-10.8) mg/dL Troponin I 0.01 (0-0.03) ng/mL Urine Color Yellow (Yellow) Urine Clarity Cloudy A (Clear) Urine pH 6.0 (5.0-8.0) pH Units Ur Specific [place] 1.013 (1.010-1.025) Urine Protein Trace (Neg-Trace) mg/dL Urine Glucose (UA) Normal (Normal) mg/dL Urine Ketones Negative (Negative) mg/dL Urine Blood Small H (Negative) Urine Nitrite Negative (Negative) Urine Bilirubin Negative (Negative) Urine Urobilinogen Normal (Normal) mg/dL Ur Leukocyte Esterase Large H (Negative) Urine Microscopic RBC 3-5 H (0-3) per hpf Urine Microscopic WBC TNTC H (0-3) per hpf Ur Squamous Epith Cells Many H (None-Few) per lpf Urine Bacteria None Seen (None-Few) per hpf Hyaline Casts None Seen (None-Few) per lpf Ur Culture Indicated? YES A (NO) Specimen Rejected 04/27/17 04/27/17 Range/Units 11:17 11:34 WBC (4.3-11.1) K/mcL RBC (3.82-4.97) M/mcL Hgb (11.5-15.4) g/dL Hct (35.3-44.9) % MCV (83.0-100.0) fL MCH (28.0-33.3) pg MCHC (31.6-35.5) g/dL RDW (11.5-14.5) % Plt Count (140-400) K/mcL MPV (9.4-12.4) fL Seg Neutrophils % % Band Neutrophils % (0-4) % Lymphocytes % % Neutrophils # (1.6-8.9) K/mcL Lymphocytes # (0.6-4.6) K/mcL Platelet Estimate (Normal) PT (9.4-12.1) Seconds INR APTT (26.0-36.0) Seconds Sodium (136-145) mEq/L Potassium (3.5-4.5) mEq/L Chloride (98-109) mEq/L Carbon Dioxide (19-29) mEq/L BUN (7-20) mg/dL Creatinine (0.57-1.11) mg/dL Est GFR ( Amer) (> 60) Est GFR (Non-Af Amer) (> 60) BUN/Creatinine Ratio (6-26) Glucose (70-99) mg/dL POC Glucose (58-89) Calculated Osmolality (280-300) Lactic Acid 2.7 H (0.5-2.2) mmol/L Calcium (8.6-10.8) mg/dL Troponin I (0-0.03) ng/mL Urine Color (Yellow) Urine Clarity (Clear) Urine pH (5.0-8.0) pH Units Ur Specific [place] (1.010-1.025) Urine Protein (Neg-Trace) mg/dL Urine Glucose (UA) (Normal) mg/dL Urine Ketones (Negative) mg/dL Urine Blood (Negative) Urine Nitrite (Negative) Urine Bilirubin (Negative) Urine Urobilinogen (Normal) mg/dL Ur Leukocyte Esterase (Negative) Urine Microscopic RBC (0-3) per hpf Urine Microscopic WBC (0-3) per hpf Ur Squamous Epith Cells (None-Few) per lpf Urine Bacteria (None-Few) per hpf Hyaline Casts (None-Few) per lpf Ur Culture Indicated? (NO) Specimen Rejected Hemolyzed - Radiology Data Radiology results reviewed: Yes I reviewed the patient's radiology results. - EKG Data EKG #1 EKG attestation: Yes I reviewed and interpreted this EKG. EKG results narrative: Heart rate 94 bpm. TX interval QRS 150 ms. QTc [address] ms. [address]. No ST elevation or ST depression noted. Left bundle branch block. Left axis deviation. There is some noted changes on the lateral leads from EKG from 02/10. Attestation Statement - Attestation Attestation: I examined this patient and my medical decision-making was reviewed with the PRESS BREAKER/PA/Advanced Practice Nurse/Resident Physician. I agree with the documented findings, disposition and treatment plan as described except to the extent set forth below.
[2017-04-27 10:42] LABS: Hemoglobin 13.2 g/dL (11.5-15.4)
[2017-04-27 10:44] LABS: Hematocrit 38.5 % (35.3-44.9); Lymphocytes # 1.1 K/mcL (0.6-4.6); Mean Corpuscular HGB Conc 34.3 g/dL (31.6-35.5); Mean Corpuscular Hemoglobin 30.3 pg (28.0-33.3); Mean Corpuscular Volume 88.5 fL (83.0-100.0); Mean Platelet Volume 10.2 fL (9.4-12.4); Platelet Count 224 K/mcL (140-400); Red Blood Count 4.35 M/mcL (3.82-4.97); Red Cell Distribution Width 12.6 % (11.5-14.5)
[2017-04-27 10:52] LABS: Activated Partial Thrombo Time 53.5 Seconds (26.0-36.0)
[2017-04-27 10:53] LABS: Calcium 11.2 mg/dL (8.6-10.8); Potassium 4.5 mEq/L (3.5-4.5)
[2017-04-27 10:55] LABS: INR 8.6; Prothrombin Time 99.6 Seconds (9.4-12.1)
[2017-04-27] MEDS ORDERED: Furosemide 40 MG in 0.9 % Sodium Chloride 50 ML IVPB ONE (10:58)
[2017-04-27] MEDS ORDERED: 0.9 % Sodium Chloride 500 ML IVC ONE ×2 (11:01→12:00)
[2017-04-27 11:05] LABS: Bilirubin,Urine Negative (Negative); Blood,Urine Small (Negative); Clarity,Urine Cloudy (Clear); Color,Urine Yellow (Yellow); Glucose,Urine (UA) Normal (Normal); Ketones,Urine Negative (Negative); Leukocyte Esterase,Urine Large (Negative); Nitrite,Urine Negative (Negative); Protein,Urine Trace mg/dL (Neg-Trace); Specific Gravity,Urine 1.013 (1.010-1.025); Urobilinogen,Urine Normal (Normal)
[2017-04-27 11:07] LABS: Neutrophils # 25.2 K/mcL (1.6-8.9)
[2017-04-27 11:07] LABS: Bacteria,Urine None Seen per hpf (None-Few); Hyaline Casts,Urine None Seen per lpf (None-Few); Squamous Epithelial Cell,Urine Many per lpf (None-Few); WBC,Urine TNTC per hpf (0-3)
[2017-04-27 11:08] LABS: Platelet Estimate Normal (Normal)
[2017-04-27] MEDS ORDERED: 0.9 % Sodium Chloride 1,000 ML IVC ONE (12:06)
[2017-04-27] MEDS ORDERED: Azithromycin 500 MG in D5% in Water 250 ML IVPB ONE (12:11)
[2017-04-27] MEDS ORDERED: Naloxone 0.4 MG/ML INJ IVP PRN (14:07)
[2017-04-27] MEDS ORDERED: Acetaminophen 325 MG TABLET PO PRN (14:07)
--- NOTE | 2017-04-27 15:47 | Internal Med History&Physical ---
Date of Encounter: 04/27/17 Time of Encounter: 15:30 Assessment and Plan (1) Sepsis Current visit: Yes Status: Suspected Patient presenting with signs and symptoms of sepsis leukocytosis, lactic acidosis with possible acute urinary source of infection. Previously positive for Escherichia coli which was pansensitive. On the chest x-ray shows faint increased interstitial markings, these are unchanged and even slightly improved compared to her previous x-ray done in February. She does not exhibit any signs of pneumonia at this time. We will treat her for sepsis related to acute urinary tract infection for now. Follow blood and urine cultures. Trend lactic acid. Monitor vital signs closely. High risk for complications due to sepsis. Qualifiers: Sepsis type: Escherichia coli Qualified Code(s): A41.51 - Sepsis due to Escherichia coli [E. coli] (2) Acute kidney injury superimposed on chronic kidney disease Current visit: Yes Status: Acute Acute kidney injury related to sepsis on chronic kidney disease stage III. Monitor vital signs. IV fluids. Monitor input and output. (3) Supratherapeutic INR Current visit: Yes Status: Acute INR remains supratherapeutic at 8.6. Hold Coumadin. No overt bleeding. Monitor blood counts. (4) UTI (urinary tract infection) Current visit: Yes Status: Acute Patient with dysuria and possible acute urinary tract infection. No signs of pyelonephritis at this time. We will treat with IV ceftriaxone. Qualifiers: Urinary tract infection type: acute cystitis Hematuria presence: without hematuria Qualified Code(s): N30.00 - Acute cystitis without hematuria (5) Atrial fibrillation Current visit: Yes Status: Chronic Rate controlled. Continue Tikosyn Qualifiers: Atrial fibrillation type: chronic Qualified Code(s): I48.2 - Chronic atrial fibrillation (6) Essential hypertension Current visit: Yes Status: Chronic Patient's blood pressure is currently on the lower side. Hold antihypertensives. Internal Medicine - H&P: HPI Chief complaint: Dysuria, fatigue Admitted From: Emergency Dept Plans for Post Hospital Care: Home History of present illness: Ms. Delgadillo is a 87 year old female patient with history of atrial fibrillation , coronary artery disease, hypertension, cardiomyopathy presented to the ER with complaints of generalized weakness, fatigue and some confusion. She had her INR checked yesterday and was told it was high. She was asked to repeat it today and when her granddaughter went to visit her to take her to get the blood work done, she was confused and was unable to perform her activities of daily living. She has been having some dysuria and was diagnosed with an acute urinary tract infection by her primary care provider yesterday and was placed on Macrobid. She denies any fever or chills. No nausea or vomiting. She does complain of some back pain which is new for her but she states it is mostly from lying around. At baseline, patient is very active and is on her feet all the time. However since Tuesday she has been weaker and not able to perform her usual activities. She denies any chest pain or shortness of breath. She has some occasional cough which is unchanged from before. Past Med Surg Social Fam HX - Past Medical History Attestation: Yes The following information was validated with the patient. Source: patient, old records reviewed, obtained from family Medical history: atrial fibrillation, cardiomyopathy, coronary artery disease, hypertension Psychiatric history: no psych history - Past Surgical History Surgical History: hysterectomy - Social History Smoking Status: Never smoker Smokeless Tobacco Status: No Alcohol use: none Drug use: none - Additional Family History Additional family history: Reviewed and found to be noncontributory at this time Internal Medicine - H&P: Meds Dofetilide [Tikosyn] 0.25 mg PO BID 02/10/17 [History] Lisinopril [Zestril] 7.5 mg PO DAILY 02/10/17 [History] Furosemide [Lasix] 20 mg PO DAILY #30 tablet 02/11/17 [Rx] Metoprolol Succinate [Metoprolol Succinate] 100 mg PO DAILY 04/27/17 [History] Nitrofurantoin (BID) [Macrobid] 100 mg PO Q12H 04/27/17 [History] Warfarin [Coumadin] 4 mg PO MOTUWESA 04/27/17 [History] Warfarin [Coumadin] 5 mg PO SUTHFR 04/27/17 [History] Allergies No Known Allergies Allergy (Verified 04/27/17 09:57) All Systems PM: A 10-system review of systems was performed and is negative for pertinent findings except as documented above in the HPI. - Constitutional Constitutional: fatigue, malaise, weakness, no chills, no fever(s), no night sweats - EENT Eyes: no change in vision, no discharge, no pain, no photophobia Ears: no ear discharge, no ear pain, no tinnitus Nose, mouth and throat: no dysphagia, no nasal discharge, no neck pain, no sore throat - Cardiovascular Cardiovascular ROS IM: no chest pain, no diaphoresis, no dyspnea, no lightheadedness, no palpitations, no syncope - Respiratory Respiratory: no cough, no dyspnea, no wheezing, no excessive phlegm production - Gastrointestinal Gastrointestinal: no abdominal pain, no diarrhea, no hematemesis, no hematochezia, no melena, no nausea, no vomiting - Genitourinary Genitourinary: dysuria, no change in urinary stream, no flank pain, no hematuria - Musculoskeletal Musculoskeletal ROS IM: no numbness, no tingling - Integumentary Integumentary IM: no rash, no unusual bruising - Neurological Neurological ROS: no confusion, no convulsions, no focal weakness, no numbness, no tingling, no tremor(s) - Hematologic/Lymphatic Hematologic/Lymphatic: no easy bruising - Constitutional Vitals: Temp Pulse Resp BP Pulse Ox 97.8 F 89 13 93/50 95 04/27/17 15:06 04/27/17 15:06 04/27/17 15:06 04/27/17 15:06 04/27/17 15:06 General appearance: Present: cooperative, mild distress, A&O X 3, answers questions appropriately - Eye Eye exam: Present: EOMI, PERRL, conjuntiva pink, sclera anicteric - Neck Neck exam general surgery: Present: supple, trachea midline. Absent: lymphadenopathy - Respiratory Respiratory exam: Present: CTAB. Absent: accessory muscle use, rales, rhonchi, wheezes - Cardiovascular Cardiovascular exam: Present: RRR, +S1, +S2. Absent: diastolic murmur, gallop, rubs, systolic murmur - GI/Abdominal GI/Abdominal exam: Present: normal bowel sounds, soft, no peritoneal signs. Absent: distended, tenderness - Extremities Exam Extremities exam: Present: warm, radial pulses palpable and symetrical. Absent : calf tenderness, cyanotic, pedal edema - Neurological Exam Neurological exam: Present: alert, CN II-XII intact, oriented X3, no focal deficits. Absent: facial droop, speech deficit - Skin Skin exam: Present: dry, intact Internal Med - H&P Results - Labs CBC & Chem 7: 04/27/17 10:35 04/27/17 10:35 - Impressions Impressions Chest X-Ray 04/27/17 09:50 IMPRESSION: Cardiomegaly with interstitial pulmonary edema versus infection. Recommend follow-up imaging to confirm resolution D/ / Nathan Romero MD / Nathan Romero MD Interpreting Provider: Nathan Romero MD Head CT 04/27/17 09:50 IMPRESSION: No acute intracranial abnormality. D/ / Nathan Romero MD / Nathan Romero MD Interpreting Provider: Nathan Romero MD
[2017-04-27] MEDS ORDERED: 0.9 % Sodium Chloride 1,000 ML IVC SCH (16:00)
[2017-04-27] MEDS ORDERED: *HR* Heparin 5,000 UNIT/ML VIAL SQ SCH (18:00)
--- NOTE | 2017-04-27 18:06 | Electrocardiograph Report ---
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
[2017-04-27] MEDS ORDERED: *HR* Phytonadione 10 MG/ML AMPUL SQ ONE (18:57)
[2017-04-28 06:16] LABS: Basophils % 0.3 %; Eosinophils # 0.2 K/mcL (0.0-0.6); Eosinophils % 1.4 %; Hematocrit 30.8 % (35.3-44.9); Immature Granulocytes % 0.3 % (0-4); Lymphocytes # 1.6 K/mcL (0.6-4.6); Lymphocytes % 12.7 %; Mean Corpuscular HGB Conc 34.1 g/dL (31.6-35.5); Mean Corpuscular Hemoglobin 30.3 pg (28.0-33.3); Mean Corpuscular Volume 88.8 fL (83.0-100.0); Monocytes # 0.6 K/mcL (0.0-1.3); Monocytes % 4.5 %; Platelet Count 176 K/mcL (140-400); Red Blood Count 3.47 M/mcL (3.82-4.97); Red Cell Distribution Width 12.9 % (11.5-14.5); Segmented Neutrophils % 80.8 %
[2017-04-28 06:22] LABS: INR 6.9; Prothrombin Time 79.2 Seconds (9.4-12.1)
[2017-04-28 06:24] LABS: Hemoglobin 10.5 g/dL (11.5-15.4); Neutrophils # 9.9 K/mcL (1.6-8.9)
[2017-04-28 06:34] LABS: Calcium 9.6 mg/dL (8.6-10.8); Potassium 3.9 mEq/L (3.5-4.5)
[2017-04-28] MEDS ORDERED: Azithromycin 500 MG in D5% in Water 250 ML IVPB SCH (13:00)
--- NOTE | 2017-04-28 18:43 | Internal Med Progress Note ---
Date of Encounter: 04/28/17 Time of Encounter: 09:00 - Assessment and plan (1) Supratherapeutic INR Current Visit: Yes Status: Acute Assessment and plan: INR 6.9. no signs of bleeding. Vitamin K 2.5 mg was given, follow-up INR (2) UTI (urinary tract infection) Current Visit: Yes Status: Acute Assessment and plan: Improved after treatment. Continue antibiotic. Urine culture shows gram- positive cocci, follow final results Qualifiers: Urinary tract infection type: acute cystitis Hematuria presence: without hematuria Qualified Code(s): N30.00 - Acute cystitis without hematuria (3) Essential hypertension Current Visit: Yes Status: Chronic Assessment and plan: Continue home medications, BP is stable (4) CKD (chronic kidney disease) Current Visit: No Status: Chronic Assessment and plan: Stable creatinine level at baseline Qualifiers: Chronic kidney disease stage: stage 3 (moderate) Qualified Code(s): N18.3 - Chronic kidney disease, stage 3 (moderate) (5) Sepsis Current Visit: Yes Status: Suspected Assessment and plan: Improved after treatment. Continue antibiotics, follow up WBC, lactate. Qualifiers: Sepsis type: Escherichia coli Qualified Code(s): A41.51 - Sepsis due to Escherichia coli [E. coli] (6) Atrial fibrillation Current Visit: Yes Status: Chronic Assessment and plan: Heart rate is well controlled. Hold Coumadin because of supratherapeutic INR Qualifiers: Atrial fibrillation type: chronic Qualified Code(s): I48.2 - Chronic atrial fibrillation (7) DVT prophylaxis Current Visit: Yes Status: Acute Assessment and plan: Patient is on Coumadin. INR supratherapeutic - Time Spent With Patient 25 - 35 minutes - Subjective Interval history: Patient is a 87-year-old female admitted for sepsis and UTI. Past medical history is significant for A. fib on Coumadin, CAD, hypertension. She was seen and examined. Doing well. Still complaining dysuria and burning. Denies flank pain, nausea, vomiting, or fever. Vitals are stable. We will continue antibiotic for UTI. Closely monitoring patient - Constitutional Vitals: Temp Pulse Resp BP Pulse Ox 98.0 F 84 14 135/81 98 04/28/17 15:17 04/28/17 15:17 04/28/17 15:17 04/28/17 15:17 04/28/17 15:17 General appearance: Present: cooperative, mild distress, A&O X 3, pleasant, answers questions appropriately - Head Head exam: Present: atraumatic, normocephalic - Eye Eye exam: Present: PERRL, conjuntiva pink, sclera anicteric Pupils: Present: PERRL - Neck Neck exam general surgery: Present: supple, trachea midline. Absent: lymphadenopathy - Respiratory Respiratory exam: Present: CTAB. Absent: accessory muscle use, rales, rhonchi, wheezes - Cardiovascular Cardiovascular exam: Present: RRR, +S1, +S2. Absent: diastolic murmur, gallop, rubs, systolic murmur - GI/Abdominal GI/Abdominal exam: Present: normal bowel sounds, soft, no peritoneal signs. Absent: distended, tenderness - Extremities Exam Extremities exam: Present: warm, radial pulses palpable and symetrical. Absent : calf tenderness, cyanotic, pedal edema - Neurological Exam Neurological exam: Present: CN II-XII intact, oriented X3, no focal deficits. Absent: pronater drift, facial droop, speech deficit - Skin Skin exam: Present: dry, intact Internal Medicine: Result - Labs CBC & Chem 7: 04/28/17 05:41 04/28/17 05:41 Labs: Short CBC 04/28/17 Range/Units 05:41 WBC 12.3 H D (4.3-11.1) K/mcL Hgb 10.5 L D (11.5-15.4) g/dL Hct 30.8 L (35.3-44.9) % Plt Count 176 (140-400) K/mcL Neutrophils # 9.9 H (1.6-8.9) K/mcL BMP 04/28/17 05:41 Sodium 140 Potassium 3.9 Chloride 109 Carbon Dioxide 25 BUN 35 H Creatinine 1.64 H Glucose 96 Calcium 9.6 - ABG Interpretation ABG results: PT/INR, D-dimer PT 79.2 Seconds (9.4-12.1) H* 04/28/17 05:41 - Impressions Impressions Chest X-Ray 04/28/17 07:00 IMPRESSION: No substantial interval change. Minimal left basilar airspace disease. D/ / Jayjay Johnson MD / Jayjay Johnson MD Interpreting Provider: Jayjay Johnson MD Consult Discharge Plan - Plan Referrals: Jass Cruz DO [Primary Care Provider] - 05/03/17 2:00 pm
[2017-04-29 06:47] LABS: Basophils # 0.1 K/mcL (0.0-0.2); Basophils % 0.4 %; Eosinophils # 0.2 K/mcL (0.0-0.6); Eosinophils % 2.1 %; Hematocrit 34.2 % (35.3-44.9); Hemoglobin 11.3 g/dL (11.5-15.4); Immature Granulocytes % 0.4 % (0-4); Lymphocytes % 17.7 %; Mean Corpuscular Hemoglobin 28.9 pg (28.0-33.3); Mean Corpuscular Volume 87.5 fL (83.0-100.0); Mean Platelet Volume 10.5 fL (9.4-12.4); Monocytes # 0.6 K/mcL (0.0-1.3); Monocytes % 5.7 %; Neutrophils # 8.2 K/mcL (1.6-8.9); Platelet Count 209 K/mcL (140-400); Red Blood Count 3.91 M/mcL (3.82-4.97); Red Cell Distribution Width 12.7 % (11.5-14.5); Segmented Neutrophils % 73.7 %
[2017-04-29 07:00] LABS: Calcium 10.4 mg/dL (8.6-10.8); Potassium 3.9 mEq/L (3.5-4.5)
[2017-04-29 08:44] LABS: INR 1.9; Prothrombin Time 20.9 Seconds (9.4-12.1)
[2017-04-29] MEDS ORDERED: Furosemide 20 MG TABLET PO SCH (09:00)
[2017-04-29] MEDS ORDERED: Metoprolol XL (24 HR) Succ 50 MG TAB.ER.24H PO SCH (09:00)
[2017-04-29] MEDS ORDERED: Ampicillin 2 GM in 0.9 % Sodium Chloride Mini Bag 100 ML IVPB SCH (12:00)
--- NOTE | 2017-04-29 13:17 | Discharge Summary ---
Date of Encounter: 04/29/17 Time of Encounter: 10:00 - Discharge Diagnosis (1) Supratherapeutic INR Priority: Primary Status: Acute (2) UTI (urinary tract infection) Priority: Primary Status: Acute Qualifiers: Urinary tract infection type: acute cystitis Hematuria presence: without hematuria Qualified Code(s): N30.00 - Acute cystitis without hematuria (3) Essential hypertension Priority: Secondary Status: Chronic (4) CKD (chronic kidney disease) Priority: Secondary Status: Chronic Qualifiers: Chronic kidney disease stage: stage 3 (moderate) Qualified Code(s): N18.3 - Chronic kidney disease, stage 3 (moderate) (5) Sepsis Priority: Primary Status: Suspected Qualifiers: Sepsis type: Escherichia coli Qualified Code(s): A41.51 - Sepsis due to Escherichia coli [E. coli] (6) Atrial fibrillation Priority: Secondary Status: Chronic Qualifiers: Atrial fibrillation type: chronic Qualified Code(s): I48.2 - Chronic atrial fibrillation (7) DVT prophylaxis Priority: Secondary Status: Acute - Discharge Medications Prescriptions: Amoxicillin [Amoxil] 250 mg PO Q8HR #15 tab.chew Home Medications: Lisinopril [Zestril] 7.5 mg PO DAILY 02/10/17 [History] Furosemide [Lasix] 20 mg PO DAILY #30 tablet 02/11/17 [Rx] Metoprolol Succinate 100 mg PO DAILY 04/27/17 [History] Multivit-Min/FA/Lycopen/Lutein [Adults 50+ Multivitamin Tablet] 1 each PO DAILY 04/28/17 [History] Mv-Mn/FA/Vit K1/Lycop/Lut/Zeax [Ocuvite Eye + Multi Tablet] 1 each PO DAILY [History] Amoxicillin [Amoxil] 250 mg PO Q8HR #15 tab.chew 04/29/17 [Rx] Warfarin [Coumadin] 4 mg PO DAILY #0 04/29/17 [Rx] Allergies/Adverse Reactions: Allergies No Known Allergies Allergy (Verified 04/27/17 09:57) Procedures/tests Complete & Pending: Procedures Performed prior 72 hours Category Date Time Status CT abd pelvis wo no iv no oral [CT] Stat Cat Scan 04/29/17 10:21 Draft - Notes to Outpatient Provider 1. Patient has supratherapeutic INR on admission. Her INR level Down to 1.9 today. Would decrease her Coumadin dose to 4mg po daily. Check INR in Next week () Date of admission: 04/27/17 14:07 Primary care physician: Jass Cruz DO Consults: 04/28/17 10:29 Consult to [employer] [CONS] Routine Reason for SW Consult: social issues Discharging clinician: Kurt Ryan Anticipated date of discharge: 04/29/17 - Patient Status Disposition: Home, Self-Care Condition: Good Functional capacity at discharge: uses cane/walker Overall status at discharge: patient is back to baseline - Discharge Instructions Follow Up With: Jass Cruz DO [Primary Care Provider] - 05/03/17 2:00 pm Forms: ED Satisfaction Letter - Diet and Activity Activity: increase activity as tolerated Diet: low fat, low cholesterol, low salt diet Interval History: Ms. Delgadillo is a 87 year old female patient with history of atrial fibrillation , coronary artery disease, hypertension, cardiomyopathy presented to the ER with complaints of generalized weakness, fatigue and some confusion. She had her INR checked yesterday and was told it was high. She was asked to repeat it today and when her granddaughter went to visit her to take her to get the blood work done, she was confused and was unable to perform her activities of daily living. She has been having some dysuria and was diagnosed with an acute urinary tract infection by her primary care provider yesterday and was placed on Macrobid. She denies any fever or chills. No nausea or vomiting. She does complain of some back pain which is new for her but she states it is mostly from lying around. At baseline, patient is very active and is on her feet all the time. However since Tuesday she has been weaker and not able to perform her usual activities. She denies any chest pain or shortness of breath. She has some occasional cough which is unchanged from before. Hospital course: Ms. Delgadillo is a 87 year old female admitted as urosepsis and UTI. She was treated with IV fluid and IV antibiotic. After treatment, her condition has improved significantly. No fever, WBC get Down to normal range. CT abdomen and pelvis shows no kidney stone or obstruction. Antibiotic has switched to by mouth. Patient feels fine and asking to go home. Patient is independent and active. I also discussed with the family, her granddaughter said the family member can stay with her for several days right after discharge. We will discharge her home with by mouth antibiotic. I saw and examined the patient did today. She is awake, alert, oriented 3, pleasant, no complaints. Vitals are stable. INR 1.9 today. Her Coumadin also has been adjusted to 4 mg by mouth daily. Urine culture shows enterococcus fecalis, sensitivity to ampicillin, will discharge patient home with by mouth ampicillin. Patient was advised to check her INR next Tuesday when she sees her primary care doctor. - Time Spent with Patient Total time spent providing and/or coordinating discharge services: 40 minutes Greater than 30 minutes - Constitutional Vitals: Temp Pulse Resp BP Pulse Ox 97.6 F 75 16 132/84 97 04/29/17 12:12 04/29/17 12:12 04/29/17 12:12 04/29/17 12:12 04/29/17 12:12 General appearance: Present: cooperative, mild distress, A&O X 3, pleasant, answers questions appropriately - Head Head exam: Present: atraumatic, normocephalic - Eye Eye exam: Present: PERRL, conjuntiva pink, sclera anicteric Pupils: Present: PERRL - Neck Neck exam general surgery: Present: supple, trachea midline. Absent: lymphadenopathy - Respiratory Respiratory exam: Present: CTAB. Absent: accessory muscle use, rales, rhonchi, wheezes - Cardiovascular Cardiovascular exam: Present: irregular rhythm, +S1, +S2. Absent: diastolic murmur, gallop, rubs, systolic murmur - GI/Abdominal GI/Abdominal exam: Present: normal bowel sounds, soft, no peritoneal signs. Absent: distended, tenderness - Extremities Exam Extremities exam: Present: warm, radial pulses palpable and symetrical. Absent : calf tenderness, cyanotic, pedal edema - Neurological Exam Neurological exam: Present: CN II-XII intact, oriented X3, no focal deficits. Absent: pronater drift, facial droop, speech deficit - Skin Skin exam: Present: dry, intact
[2017-04-29] MEDS ORDERED: Amoxicillin 250 MG CHEWABLE TABLET PO ONE (14:17)
[2017-04-29 15:09] VITALS: BP 115/69
[2017-04-29] MEDS ORDERED: Amoxicillin 250 MG CHEWABLE TABLET PO SCH (16:00)
== END 2017-04-29 16:35 | disposition home or self-care (01) | DRG 872 ==
LOC: 2ANU 09:43 → EMEROO 09:43 → 2ANU 14:58
PROVIDERS: ADMIT Internal Medicine; ATTEND Internal Medicine